=== PATIENT | male | born 2000 | race Caucasian/White ===

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

== ENCOUNTER 2021-05-05 04:09 | Emergency (ER) | payer BC, OTHER | END 2021-05-05 05:05 | disposition home or self-care (01) | LOC: MW.ED 04:09 | DX: S60.812A Abrasion of left wrist, initial encounter (principal); Z91.018 Allergy to other foods; Z88.7 Allergy status to serum and vaccine; W22.09XA Striking against other stationary object, initial encounter | CPT/HCPCS: 99282; 99283 ==

== ENCOUNTER 2021-06-09 18:55 | Emergency (ER) | payer MEDICAID ==
[2021-06-09 21:01] LABS: ACETAMINOPHEN <2.0 ug/mL; BLOOD UREA NITROGEN,BUN 18 mg/dL (7.0-18.0); CARBON DIOXIDE,CO2 27.7 mmol/L (21.0-32.0); CHLORIDE,CL 108 mmol/L (98-107); GLUCOSE RANDOM 132 mg/dL (74-106); POTASSIUM,K 3.5 mmol/L (3.5-5.1); SODIUM,NA 145 mmol/L (136-148)
[2021-06-09] MEDS ORDERED: Nicotine 21 MG/24 Hr Patch TRDERM STA (21:20)
== END 2021-06-09 21:36 | disposition home or self-care (01) ==
LOC: MW.ED 18:55
DX: R45.851 Suicidal ideations (principal); F43.21 Adjustment disorder with depressed mood; Z20.822 Contact with and (suspected) exposure to COVID-19
CPT/HCPCS: 36415; 80053; 80143; 80179; 80305; 80307; 84443; 85025; 87635; 93005; 99285; A9270; U0002

== ENCOUNTER 2021-07-15 03:16 | Emergency (ER) | payer MEDICAID ==
[2021-07-15] MEDS ORDERED: Aspirin 81 MG Tab.Chew PO ONE (03:27)
[2021-07-15 04:09] LABS: BLOOD UREA NITROGEN,BUN 13 mg/dL (7.0-18.0); CARBON DIOXIDE,CO2 27.5 mmol/L (21.0-32.0); CHLORIDE,CL 107 mmol/L (98-107); GLUCOSE RANDOM 104 mg/dL (74-106); SODIUM,NA 142 mmol/L (136-148)
== END 2021-07-15 06:24 | disposition home or self-care (01) ==
LOC: MW.ED 03:16
DX: R07.89 Other chest pain (principal); Z91.018 Allergy to other foods; Z88.7 Allergy status to serum and vaccine; Z79.899 Other long term (current) drug therapy; Z20.822 Contact with and (suspected) exposure to COVID-19
CPT/HCPCS: 36415; 71045; 80053; 84484; 85025; 87635; 93005; 99285; A9270; U0002

== ENCOUNTER 2021-08-28 04:03 | Emergency (ER) | payer MEDICAID ==
[2021-08-28] MEDS ORDERED: Sodium Chloride 0.9% 10 ML Syringe FLUSH PRN (04:56)
[2021-08-28] MEDS ORDERED: Sodium Chloride 0.9% 2.5 ML Syringe FLUSH PRN (04:56)
[2021-08-28] MEDS ORDERED: Lactated Ringers 1,000 ML IV ONE (04:56)
[2021-08-28] MEDS ORDERED: Ondansetron 4 MG/2 ML SDV IVPUSH ONE (04:56)
[2021-08-28 06:27] LABS: CARBON DIOXIDE,CO2 27.6 mmol/L (21.0-32.0); POTASSIUM,K 3.7 mmol/L (3.5-5.1)
== END 2021-08-28 06:58 | disposition home or self-care (01) ==
LOC: MW.ED 04:03
DX: R11.10 Vomiting, unspecified (principal); Z88.7 Allergy status to serum and vaccine; Z91.018 Allergy to other foods; Z79.899 Other long term (current) drug therapy
CPT/HCPCS: 36415; 80053; 81001; 83690; 85025; 96361; 96374; 99284; J2405; J3490; J7120; 99283

== ENCOUNTER 2021-10-20 19:15 | Emergency (ER) | payer MEDICAID ==
[2021-10-20] MEDS ORDERED: Acetaminophen/HYDROcodone 325-5 MG Tab PO ONE (21:00)
== END 2021-10-20 21:33 | disposition home or self-care (01) ==
LOC: MW.ED 19:15
DX: S69.91XA Unspecified injury of right wrist, hand and finger(s), initial encounter (principal); Z88.7 Allergy status to serum and vaccine; Z91.018 Allergy to other foods; W22.09XA Striking against other stationary object, initial encounter
CPT/HCPCS: 73130; 99283; A9270

== ENCOUNTER 2021-11-30 03:25 | Emergency (ER) | payer MEDICAID ==
[2021-11-30] MEDS ORDERED: OLANZapine 10 MG Vial ONE (03:51)
[2021-11-30] MEDS ORDERED: Water For Injection, Sterile 20 ML ONE (03:52)
[2021-11-30] MEDS: OLANZapine 10 MG in Water For Injection, Sterile 2.1 ML IM ONE (03:59)
== END 2021-11-30 04:10 | disposition home or self-care (01) ==
LOC: MW.ED 03:25
DX: F41.9 Anxiety disorder, unspecified (principal); Z91.018 Allergy to other foods; Z88.6 Allergy status to analgesic agent
CPT/HCPCS: 96372; 99283; J3490

== ENCOUNTER 2021-12-11 19:47 | Emergency (ER) | payer MEDICAID ==
[2021-12-11] MEDS ORDERED: Silver Sulfadiazine 1% Crm 400 GM Jar TOP ONE (20:28)
== END 2021-12-11 21:29 | disposition home or self-care (01) ==
LOC: MW.ED 19:47
DX: T34.821A Frostbite with tissue necrosis of right foot, initial encounter (principal); M79.671 Pain in right foot; Z91.018 Allergy to other foods; Z88.7 Allergy status to serum and vaccine
CPT/HCPCS: 99284; A9270

== ENCOUNTER 2021-12-23 18:04 | Emergency (ER) | payer MEDICAID ==
[2021-12-23] MEDS ORDERED: Ibuprofen 600 MG Tab PO ONE (19:52)
== END 2021-12-23 20:27 | disposition home or self-care (01) ==
LOC: MW.ED 18:04
DX: M25.531 Pain in right wrist (principal); Z88.7 Allergy status to serum and vaccine; Z91.018 Allergy to other foods
CPT/HCPCS: 73110; 99283; A9270

== ENCOUNTER 2022-01-22 22:53 | Emergency (ER) | payer OTHER, MEDICAID ==
[2022-01-22] MEDS ORDERED: Cyclobenzaprine 10 MG Tab PO ONE (23:42)
[2022-01-22] MEDS ORDERED: Ketorolac 30 MG/ML SDV IM ONE (23:42)
[2022-01-22] MEDS ORDERED: Acetaminophen/HYDROcodone 325-5 MG Tab PO ONE (23:42)
== END 2022-01-23 02:00 | disposition home or self-care (01) ==
LOC: MW.ED 22:53
DX: S09.90XA Unspecified injury of head, initial encounter (principal); S00.83XA Contusion of other part of head, initial encounter; R07.89 Other chest pain; M54.2 Cervicalgia; J45.909 Unspecified asthma, uncomplicated; Z91.018 Allergy to other foods; Z88.7 Allergy status to serum and vaccine; V89.2XXA Person injured in unspecified motor-vehicle accident, traffic, initial encounter; Y92.410 Unspecified street and highway as the place of occurrence of the external cause
CPT/HCPCS: 70450; 71045; 72125; 96374; 99284; A9270; J1885

== ENCOUNTER 2022-01-26 12:49 | Emergency (ER) | payer MEDICAID ==
[2022-01-26] MEDS ORDERED: Acetaminophen 500 MG Tab PO ONE (14:29)
[2022-01-26] MEDS ORDERED: Ibuprofen 200 MG Tab PO ONE (14:29)
[2022-01-26 15:30] LABS: CORONAVIRUS COVID-19 NAA NEGATIVE (NEGATIVE); INFLUENZA A NAA POSITIVE (NEGATIVE); INFLUENZA B NAA NEGATIVE (NEGATIVE); RESPIRATORY SYNCYTIAL VIR NAA NEGATIVE (NEGATIVE)
== END 2022-01-26 15:50 | disposition home or self-care (01) ==
LOC: MW.ED 12:49
DX: J10.1 Influenza due to other identified influenza virus with other respiratory manifestations (principal); F17.210 Nicotine dependence, cigarettes, uncomplicated; Z88.7 Allergy status to serum and vaccine; Z88.8 Allergy status to other drugs, medicaments and biological substances; Z20.822 Contact with and (suspected) exposure to COVID-19
CPT/HCPCS: 0241U; 71045; 72100; 93005; 99285; A9270

== ENCOUNTER 2022-03-19 22:13 | Emergency (ER) | payer MEDICAID ==
[2022-03-19] MEDS ORDERED: Cephalexin 500 MG Cap PO STA (23:34)
[2022-03-19] MEDS ORDERED: Ibuprofen 600 MG Tab PO ONE (23:37)
[2022-03-19] MEDS ORDERED: Diphtheria,Pertussis(Acell),Tetanus Vaccine 0.5 ML Syringe IM ONE (23:37)
== END 2022-03-20 00:09 | disposition home or self-care (01) ==
LOC: MW.ED 22:13
DX: L03.113 Cellulitis of right upper limb (principal); J45.909 Unspecified asthma, uncomplicated; Z23 Encounter for immunization; Z72.0 Tobacco use; Z91.018 Allergy to other foods; Z88.7 Allergy status to serum and vaccine; Z79.899 Other long term (current) drug therapy
CPT/HCPCS: 90471; 90715; 99282; A9270

== ENCOUNTER 2022-04-07 19:23 | Emergency (ER) | payer MEDICAID ==
[2022-04-07] MEDS ORDERED: Ketorolac 30 MG/ML SDV IVPUSH ONE (19:29)
[2022-04-07 20:15] LABS: CARBON DIOXIDE,CO2 30.2 mmol/L (21.0-32.0); POTASSIUM,K 3.9 mmol/L (3.5-5.1)
== END 2022-04-07 21:20 | disposition home or self-care (01) ==
LOC: MW.ED 19:23
DX: R07.89 Other chest pain (principal); R55 Syncope and collapse; R07.81 Pleurodynia; J45.909 Unspecified asthma, uncomplicated; Z88.7 Allergy status to serum and vaccine; Z91.018 Allergy to other foods
CPT/HCPCS: 36415; 71045; 80053; 83690; 84484; 85025; 85652; 93005; 96374; 99285; J1885

== ENCOUNTER 2022-04-20 15:15 | Emergency (ER) | payer MEDICAID ==
[2022-04-20] MEDS ORDERED: diphenhydrAMINE 50 MG/ML SDV IVPUSH ONE ×2 (15:21→16:51)
[2022-04-20] MEDS ORDERED: methylPREDNISolone Sodium Succinate 125 MG/2 ML SDV IM ONE (15:21)
[2022-04-20] MEDS ORDERED: methylPREDNISolone Sodium Succinate 125 MG/2 ML SDV IVPUSH ONE (15:21)
[2022-04-20] MEDS ORDERED: EPINEPHrine 1 MG/1 ML Amp SUBCUT ONE (15:21)
[2022-04-20] MEDS ORDERED: EPINEPHrine 1 MG/1 ML Amp ONE (15:21)
[2022-04-20] MEDS ORDERED: diphenhydrAMINE 50 MG/ML SDV IM ONE (15:21)
[2022-04-20] MEDS ORDERED: methylPREDNISolone Sodium Succinate 125 MG/2 ML SDV ONE (15:22)
[2022-04-20] MEDS ORDERED: Famotidine 20 MG Tab PO STA (15:22)
[2022-04-20] MEDS ORDERED: diphenhydrAMINE 50 MG/ML SDV ONE (15:23)
[2022-04-20] MEDS ORDERED: Lactated Ringers 1,000 ML IV SCH (15:30)
[2022-04-20] MEDS ORDERED: Cetirizine 10 MG Tab PO ONE (16:48)
[2022-04-20 17:57] LABS: CARBON DIOXIDE,CO2 25.4 mmol/L (21.0-32.0); POTASSIUM,K 3.6 mmol/L (3.5-5.1)
== END 2022-04-20 18:27 | disposition home or self-care (01) ==
LOC: MW.ED 15:15
DX: T78.2XXA Anaphylactic shock, unspecified, initial encounter (principal); Z88.7 Allergy status to serum and vaccine; Z91.018 Allergy to other foods
CPT/HCPCS: 36415; 80053; 93005; 96361; 96372; 96374; 96375; 96376; 99283; A9270; J0171; J1200; J2930; J7120

== ENCOUNTER 2022-04-29 18:33 | Emergency (ER) | payer SELFPAY ==
[2022-04-29] MEDS ORDERED: Sodium Chloride 0.9% 1,000 ML IV STA (20:23)
[2022-04-29] MEDS ORDERED: Sodium Chloride 0.9% 2.5 ML Syringe FLUSH PRN (20:24)
[2022-04-29] MEDS ORDERED: Sodium Chloride 0.9% 10 ML Syringe FLUSH PRN (20:24)
[2022-04-29 21:26] LABS: BLOOD UREA NITROGEN,BUN 12 mg/dL (7.0-18.0); CARBON DIOXIDE,CO2 28.2 mmol/L (21.0-32.0); CHLORIDE,CL 105 mmol/L (98-107); GLUCOSE RANDOM 90 mg/dL (74-106); POTASSIUM,K 4.2 mmol/L (3.5-5.1); SODIUM,NA 141 mmol/L (136-148)
[2022-04-29 21:35] LABS: ESTIMATED GFR 110 mL/min (>60)
== END 2022-04-29 22:08 | disposition home or self-care (01) ==
LOC: MW.ED 18:33
DX: Z77.098 Contact with and (suspected) exposure to other hazardous, chiefly nonmedicinal, chemicals (principal); Z88.7 Allergy status to serum and vaccine; Z91.018 Allergy to other foods
CPT/HCPCS: 36415; 71045; 80053; 81003; 85025; 93005; 96360; 99285; J3490; J7030

== ENCOUNTER 2022-05-02 22:40 | Emergency (ER) | payer MEDICAID ==
[2022-05-03] MEDS ORDERED: Ibuprofen 800 MG Tab PO ONE (02:39)
== END 2022-05-03 02:50 | disposition home or self-care (01) ==
LOC: MW.ED 22:40
DX: S61.001A Unspecified open wound of right thumb without damage to nail, initial encounter (principal); Z88.7 Allergy status to serum and vaccine; Z91.018 Allergy to other foods; W23.1XXA Caught, crushed, jammed, or pinched between stationary objects, initial encounter; Y99.0 Civilian activity done for income or pay
CPT/HCPCS: 29125; 73110; 73130; 99283; A9270; 99282

== ENCOUNTER 2022-05-10 20:54 | Emergency (ER) | payer MEDICAID ==
[2022-05-10] MEDS ORDERED: Famotidine 20 MG/2 ML SDV IVPUSH ONE (21:01)
[2022-05-10] MEDS ORDERED: Sodium Chloride 0.9% 1,000 ML IV ONE (21:01)
[2022-05-10] MEDS ORDERED: methylPREDNISolone Sodium Succinate 125 MG/2 ML SDV IVPUSH ONE (21:01)
[2022-05-10] MEDS ORDERED: diphenhydrAMINE 50 MG/ML SDV IVPUSH ONE (21:01)
== END 2022-05-10 23:00 | disposition home or self-care (01) ==
LOC: MW.ED 20:54
DX: T78.1XXA Other adverse food reactions, not elsewhere classified, initial encounter (principal); Z88.7 Allergy status to serum and vaccine; Z91.018 Allergy to other foods
CPT/HCPCS: 80305-QW; 96361; 96374; 96375; 99283-25; J1200; J2930; J3490; J7030

== ENCOUNTER 2022-06-22 00:50 | Emergency (ER) | payer OTHER, MEDICAID ==
[2022-06-22] MEDS ORDERED: Sodium Chloride 0.9% 2.5 ML Syringe FLUSH PRN (00:54)
[2022-06-22] MEDS ORDERED: Ondansetron 4 MG/2 ML SDV IVPUSH ONE (00:54)
[2022-06-22] MEDS ORDERED: Sodium Chloride 0.9% 1,000 ML IV ONE (00:54)
[2022-06-22] MEDS ORDERED: Sodium Chloride 0.9% 10 ML Syringe FLUSH PRN (00:54)
[2022-06-22] MEDS ORDERED: Famotidine 20 MG/2 ML SDV IVPUSH ONE (00:54)
[2022-06-22 01:03] LABS: BASOPHILS PERCENT AUTO 0.2 % (0.0-1.5); EOSINOPHILS ABSOLUTE AUTO 0.1 K/uL (0.0-0.7); EOSINOPHILS PERCENT AUTO 1.3 % (0.0-7.0); HEMATOCRIT 51.9 % (38.0-50.0); HEMOGLOBIN 17.5 g/dL (13.0-17.0); LYMPHOCYTES ABSOLUTE AUTO 1.8 K/uL (0.6-2.4); LYMPHOCYTES PERCENT AUTO 20.8 % (16.0-40.0); MEAN CORPUSCULAR HEMOGLOBIN 30.3 pg (27.0-32.0); MEAN CORPUSCULAR HGB CONC 33.7 g/dL (31.0-37.0); MEAN CORPUSCULAR VOLUME 89.8 fL (80.0-98.0); MONOCYTES ABSOLUTE AUTO 0.6 K/uL (0.0-0.8); MONOCYTES PERCENT AUTO 7.4 % (0.0-15.0); NEUTROPHILS ABSOLUTE AUTO 5.9 K/uL (1.4-5.7); NEUTROPHILS PERCENT AUTO 70.3 % (48.0-80.0); PLATELET COUNT,PLT 147 K/uL (150-400); RED BLOOD CELL COUNT 5.78 M/uL (4.50-5.90); WHITE BLOOD CELL COUNT,WBC 8.43 K/uL (4.0-11.0)
[2022-06-22 01:20] LABS: INR 1.03 (0.86-1.11); PTT,PARTIAL THROMBOPLSTIN TIME 27.9 SEC (23.9-30.7)
[2022-06-22 01:25] LABS: A/G RATIO 1.4 (0.9-1.6); ALANINE AMINOTRANSFERASE,ALT 59 IU/L (14-63); ALBUMIN 4.3 g/dL (3.4-5.0); ALKALINE PHOSPHATASE 109 U/L (46-116); ASPARTATE AMNIOTRANSFERASE,AST 21 IU/L (15-37); BILIRUBIN TOTAL 0.5 mg/dL (0.2-1.0); BLOOD UREA NITROGEN,BUN 16 mg/dL (7.0-18.0); CALCIUM 9.2 mg/dL (8.5-10.1); CARBON DIOXIDE,CO2 28.8 mmol/L (21.0-32.0); CHLORIDE,CL 106 mmol/L (98-107); CREATININE 1.2 mg/dL (0.8-1.3); EST CRCL DRUG DOSING (CG) 106.88 mL/min; ESTIMATED GFR 88 mL/min (>60); ETHANOL BLOOD MEDICAL < 3.0 mg/dL; GLUCOSE RANDOM 100 mg/dL (74-106); LIPASE 105 U/L (73-393); MAGNESIUM 2.4 mg/dL (1.8-2.4); PHOSPHORUS 3.1 mg/dL (2.6-4.7); POTASSIUM,K 3.8 mmol/L (3.5-5.1); PROTEIN TOTAL,TP 7.4 g/dL (6.4-8.2); SODIUM,NA 144 mmol/L (136-148)
== END 2022-06-22 01:49 ==
LOC: MW.ED 00:50
DX: S14.109A Unspecified injury at unspecified level of cervical spinal cord, initial encounter (principal); S34.109A Unspecified injury to unspecified level of lumbar spinal cord, initial encounter; M62.81 Muscle weakness (generalized); Z88.7 Allergy status to serum and vaccine; Z91.018 Allergy to other foods; Z72.0 Tobacco use; V89.2XXA Person injured in unspecified motor-vehicle accident, traffic, initial encounter; Y92.410 Unspecified street and highway as the place of occurrence of the external cause
CPT/HCPCS: 36415; 70450; 71260; 72125; 74177; 80053; 80307; 83690; 83735; 84100; 84484; 85025; 85610; 85730; 93005; 96374; 96375; 99285; J2405; J3490; J7030; 72128-26; 72131-26; 93010; 99291

== ENCOUNTER 2022-06-25 19:11 | Emergency (ER) | payer MEDICAID | END 2022-06-25 19:28 | disposition left against medical advice (07) | LOC: MW.ED 19:11 | DX: Z53.21 Procedure and treatment not carried out due to patient leaving prior to being seen by health care provider (principal) ==

== ENCOUNTER 2022-07-10 00:27 | Emergency (ER) | payer MEDICAID ==
[2022-07-10] MEDS ORDERED: Orphenadrine 60 MG/2 ML Inj IM ONE (02:09)
[2022-07-10] MEDS ORDERED: Sodium Chloride 0.9% 10 ML Syringe FLUSH PRN (02:25)
[2022-07-10] MEDS ORDERED: methylPREDNISolone Sodium Succinate 125 MG/2 ML SDV IVPUSH ONE (02:25)
[2022-07-10] MEDS ORDERED: Ketorolac 30 MG/ML SDV IVPUSH ONE (02:25)
[2022-07-10] MEDS ORDERED: Sodium Chloride 0.9% 2.5 ML Syringe FLUSH PRN (02:25)
[2022-07-10] MEDS ORDERED: HYDROmorphone 1 MG/ML Syringe IVPUSH ONE (02:25)
[2022-07-10 03:35] LABS: BASOPHILS PERCENT AUTO 0.2 % (0.0-1.5); EOSINOPHILS ABSOLUTE AUTO 0.2 K/uL (0.0-0.7); EOSINOPHILS PERCENT AUTO 1.8 % (0.0-7.0); HEMATOCRIT 47.3 % (38.0-50.0); HEMOGLOBIN 16.1 g/dL (13.0-17.0); LYMPHOCYTES ABSOLUTE AUTO 2.2 K/uL (0.6-2.4); LYMPHOCYTES PERCENT AUTO 25.4 % (16.0-40.0); MEAN CORPUSCULAR HEMOGLOBIN 30.7 pg (27.0-32.0); MEAN CORPUSCULAR VOLUME 90.1 fL (80.0-98.0); MONOCYTES ABSOLUTE AUTO 0.6 K/uL (0.0-0.8); MONOCYTES PERCENT AUTO 7.2 % (0.0-15.0); NEUTROPHILS ABSOLUTE AUTO 5.6 K/uL (1.4-5.7); NEUTROPHILS PERCENT AUTO 65.4 % (48.0-80.0); PLATELET COUNT,PLT 181 K/uL (150-400); RED BLOOD CELL COUNT 5.25 M/uL (4.50-5.90)
[2022-07-10 03:53] LABS: BLOOD UREA NITROGEN,BUN 16 mg/dL (7.0-18.0); CALCIUM 9.2 mg/dL (8.5-10.1); CARBON DIOXIDE,CO2 29.3 mmol/L (21.0-32.0); CHLORIDE,CL 105 mmol/L (98-107); CREATININE 1.2 mg/dL (0.8-1.3); EST CRCL DRUG DOSING (CG) 110.05 mL/min; GLUCOSE RANDOM 101 mg/dL (74-106); POTASSIUM,K 3.7 mmol/L (3.5-5.1); SODIUM,NA 144 mmol/L (136-148)
[2022-07-10 04:00] LABS: C-REACTIVE PROTEIN < 0.20 mg/dL (0.00-0.90); ESTIMATED GFR 88 mL/min (>60)
[2022-07-10] MEDS ORDERED: Orphenadrine 60 MG/2 ML Inj ONE (04:16)
== END 2022-07-10 09:07 ==
LOC: MW.ED 00:27
DX: M54.16 Radiculopathy, lumbar region (principal); J45.909 Unspecified asthma, uncomplicated; Z91.018 Allergy to other foods; Z88.7 Allergy status to serum and vaccine
CPT/HCPCS: 36415; 80048; 85025; 86140; 96372; 96374; 96375; 99285; J1170; J1885; J2360; J2930; J3490

== ENCOUNTER 2022-07-18 01:49 | Emergency (ER) | payer MEDICAID ==
[2022-07-18] MEDS ORDERED: Ketorolac 30 MG/ML SDV IM STA (01:56)
[2022-07-18] MEDS ORDERED: Dexamethasone 10 MG/ML SDV IM STA (01:56)
== END 2022-07-18 02:00 | disposition left against medical advice (07) ==
LOC: MW.ED 01:49
DX: M54.50 Low back pain, unspecified (principal); J45.909 Unspecified asthma, uncomplicated; Z88.7 Allergy status to serum and vaccine; Z91.018 Allergy to other foods
CPT/HCPCS: 99284

== ENCOUNTER 2022-07-31 20:57 | Emergency (ER) | payer MEDICAID ==
[2022-07-31] MEDS ORDERED: Gabapentin 100 MG Cap PO ONE (21:57)
[2022-07-31 22:04] LABS: BASOPHILS PERCENT AUTO 0.3 % (0.0-1.5); EOSINOPHILS ABSOLUTE AUTO 0.2 K/uL (0.0-0.7); EOSINOPHILS PERCENT AUTO 2.5 % (0.0-7.0); HEMOGLOBIN 16.6 g/dL (13.0-17.0); LYMPHOCYTES ABSOLUTE AUTO 1.6 K/uL (0.6-2.4); MEAN CORPUSCULAR HEMOGLOBIN 30.9 pg (27.0-32.0); MEAN CORPUSCULAR HGB CONC 34.6 g/dL (31.0-37.0); MEAN CORPUSCULAR VOLUME 89.4 fL (80.0-98.0); MONOCYTES ABSOLUTE AUTO 0.6 K/uL (0.0-0.8); MONOCYTES PERCENT AUTO 8.1 % (0.0-15.0); NEUTROPHILS ABSOLUTE AUTO 4.9 K/uL (1.4-5.7); NEUTROPHILS PERCENT AUTO 67.1 % (48.0-80.0); NRBC ABSOLUTE 0 K/uL; PLATELET COUNT,PLT 169 K/uL (150-400); RED BLOOD CELL COUNT 5.37 M/uL (4.50-5.90); WHITE BLOOD CELL COUNT,WBC 7.26 K/uL (4.0-11.0)
[2022-07-31 22:38] LABS: A/G RATIO 1.4 (0.9-1.6); ACETAMINOPHEN <2.0 ug/mL; ALANINE AMINOTRANSFERASE,ALT 97 IU/L (14-63); ALBUMIN 4.4 g/dL (3.4-5.0); ALKALINE PHOSPHATASE 109 U/L (46-116); ASPARTATE AMNIOTRANSFERASE,AST 32 IU/L (15-37); BILIRUBIN TOTAL 0.7 mg/dL (0.2-1.0); BLOOD UREA NITROGEN,BUN 20 mg/dL (7.0-18.0); CARBON DIOXIDE,CO2 25.6 mmol/L (21.0-32.0); CHLORIDE,CL 106 mmol/L (98-107); EST CRCL DRUG DOSING (CG) 139.66 mL/min; GLUCOSE RANDOM 112 mg/dL (74-106); POTASSIUM,K 3.6 mmol/L (3.5-5.1); PROTEIN TOTAL,TP 7.5 g/dL (6.4-8.2); SODIUM,NA 144 mmol/L (136-148); TSH ULTRASENSITIVE 0.67 uIU/mL (0.36-3.74)
[2022-07-31 22:39] LABS: ESTIMATED GFR 110 mL/min (>60); ETHANOL BLOOD MEDICAL < 3.0 mg/dL; SALICYLATE < 0.2 mg/dL (0.0-20.0)
[2022-07-31 23:35] LABS: BILIRUBIN,URINE NEGATIVE (NEGATIVE); GLUCOSE,URINE NEGATIVE (NEGATIVE); KETONES,URINE NEGATIVE (NEGATIVE); LEUKOCYTE ESTERASE,URINE NEGATIVE (NEGATIVE); NITRITE,URINE NEGATIVE (NEGATIVE); OCCULT BLOOD,URINE NEGATIVE (NEGATIVE); PROTEIN,URINE NEGATIVE (NEGATIVE)
[2022-07-31 23:45] LABS: AMPHETAMINES SCREEN, URINE NEGATIVE (CUTOFF=500); BARBITURATE SCREEN,URINE NEGATIVE (CUTOFF=200); BENZODIAZEPINES SCREEN,URINE NEGATIVE (CUTOFF=150); BUPRENORPHINE SCREEN,URINE NEGATIVE (CUTOFF=10); METHADONE SCREEN, URINE NEGATIVE (CUTOFF=200); METHAMPHETAMINES SCREEN, URINE NEGATIVE (CUTOFF=500); OXYCODONE SCREEN,URINE NEGATIVE (CUT0FF=100); PCP SCREEN,URINE NEGATIVE (CUTOFF=25); PROPOXYPHENE SCREEN,URINE NEGATIVE (CUTOFF=300); THC SCREEN,URINE 20 NG/ML NEGATIVE (CUTOFF=50)
[2022-07-31 23:46] LABS: APPEARANCE,URINE CLEAR; COLOR,URINE AMBER
== END 2022-08-01 09:45 ==
LOC: MW.ED 20:57
DX: R45.851 Suicidal ideations (principal); Z91.018 Allergy to other foods; Z88.7 Allergy status to serum and vaccine
CPT/HCPCS: 36415; 80053; 80143; 80179; 80305; 80307; 81003; 84443; 85025; 87635; 93005; 99285; A9270; U0002

== ENCOUNTER 2022-08-24 18:59 | Emergency (ER) | payer MEDICAID ==
[2022-08-24] MEDS ORDERED: Metoclopramide 10 MG/2 ML SDV IVPUSH ONE (19:09)
[2022-08-24] MEDS ORDERED: diphenhydrAMINE 50 MG/ML SDV IVPUSH ONE (19:09)
[2022-08-24] MEDS ORDERED: Ketorolac 30 MG/ML SDV IVPUSH ONE (19:09)
[2022-08-24] MEDS ORDERED: Sodium Chloride 0.9% 1,000 ML IV ONE (19:09)
== END 2022-08-24 20:28 | disposition home or self-care (01) ==
LOC: MW.ED 18:59
DX: R51.9 Headache, unspecified (principal); F41.9 Anxiety disorder, unspecified; Z88.7 Allergy status to serum and vaccine; Z91.018 Allergy to other foods
CPT/HCPCS: 70450; 82947; 96361; 96374; 96375; 99284; J1200; J1885; J2765; J7030

== ENCOUNTER 2022-08-26 19:08 | Emergency (ER) | payer MEDICAID ==
[2022-08-26] MEDS ORDERED: Ketorolac 60 MG/2 ML SDV IM ONE (19:24)
[2022-08-26] MEDS ORDERED: Ondansetron 4 MG Tab.DIS PO ONE (19:24)
[2022-08-26 19:36] LABS: BASOPHILS PERCENT AUTO 0.4 % (0.0-1.5); EOSINOPHILS ABSOLUTE AUTO 0.2 K/uL (0.0-0.7); EOSINOPHILS PERCENT AUTO 1.9 % (0.0-7.0); HEMOGLOBIN 16.9 g/dL (13.0-17.0); LYMPHOCYTES ABSOLUTE AUTO 1.7 K/uL (0.6-2.4); LYMPHOCYTES PERCENT AUTO 21.5 % (16.0-40.0); MEAN CORPUSCULAR HGB CONC 34.5 g/dL (31.0-37.0); MEAN CORPUSCULAR VOLUME 89.7 fL (80.0-98.0); MONOCYTES ABSOLUTE AUTO 0.7 K/uL (0.0-0.8); MONOCYTES PERCENT AUTO 8.8 % (0.0-15.0); NEUTROPHILS ABSOLUTE AUTO 5.3 K/uL (1.4-5.7); NEUTROPHILS PERCENT AUTO 67.4 % (48.0-80.0); PLATELET COUNT,PLT 163 K/uL (150-400); RED BLOOD CELL COUNT 5.46 M/uL (4.50-5.90); WHITE BLOOD CELL COUNT,WBC 7.92 K/uL (4.0-11.0)
[2022-08-26 19:52] LABS: A/G RATIO 1.4 (0.9-1.6); ALBUMIN 4.3 g/dL (3.4-5.0); BILIRUBIN TOTAL 0.4 mg/dL (0.2-1.0); CALCIUM 9.5 mg/dL (8.5-10.1); CARBON DIOXIDE,CO2 25.8 mmol/L (21.0-32.0); CREATININE 1.1 mg/dL (0.8-1.3); EST CRCL DRUG DOSING (CG) 126.96 mL/min; POTASSIUM,K 3.9 mmol/L (3.5-5.1); PROTEIN TOTAL,TP 7.4 g/dL (6.4-8.2)
== END 2022-08-26 20:15 | disposition home or self-care (01) ==
LOC: MW.ED 19:08
DX: R51.9 Headache, unspecified (principal); R11.0 Nausea; R42 Dizziness and giddiness; J45.909 Unspecified asthma, uncomplicated; Z91.018 Allergy to other foods; Z88.7 Allergy status to serum and vaccine
CPT/HCPCS: 36415; 70450; 71045; 80053; 85025; 93005; 96372; 99284; A9270; J1885; 93010; 99283

== ENCOUNTER 2022-09-13 01:10 | Emergency (ER) | payer MEDICAID ==
[2022-09-13] MEDS ORDERED: Ketorolac 30 MG/ML SDV IVPUSH ONE (01:21)
== END 2022-09-13 01:55 | disposition home or self-care (01) ==
LOC: MW.ED 01:10
DX: F10.129 Alcohol abuse with intoxication, unspecified (principal); R11.2 Nausea with vomiting, unspecified; J45.909 Unspecified asthma, uncomplicated; Z91.09 Other allergy status, other than to drugs and biological substances; Z88.7 Allergy status to serum and vaccine
CPT/HCPCS: 96374; 99284; J1885; 99283

== ENCOUNTER 2022-10-14 23:15 | Emergency (ER) | payer MEDICAID, OTHER ==
[2022-10-15] MEDS ORDERED: Ketorolac 30 MG/ML SDV IM ONE (00:04)
[2022-10-15] MEDS ORDERED: Orphenadrine 60 MG/2 ML Inj IM ONE (00:04)
== END 2022-10-15 00:55 | disposition home or self-care (01) ==
LOC: MW.ED 23:15
DX: M54.50 Low back pain, unspecified (principal); Z79.899 Other long term (current) drug therapy; Z88.7 Allergy status to serum and vaccine; Z91.018 Allergy to other foods
CPT/HCPCS: 96372; 99283; J1885; J2360

== ENCOUNTER 2022-10-20 00:06 | Emergency (ER) | payer MEDICAID ==
[2022-10-20] MEDS ORDERED: predniSONE 10 MG Tab PO ONE (00:54)
[2022-10-20] MEDS ORDERED: diphenhydrAMINE 50 MG/ML SDV IM ONE (00:54)
[2022-10-20] MEDS ORDERED: predniSONE 10 MG Tab ONE (01:03)
[2022-10-20] MEDS ORDERED: Ondansetron 4 MG Tab.DIS PO ONE (01:08)
== END 2022-10-20 01:21 | disposition home or self-care (01) ==
LOC: MW.ED 00:06
DX: T78.1XXA Other adverse food reactions, not elsewhere classified, initial encounter (principal); Z88.7 Allergy status to serum and vaccine; Z79.899 Other long term (current) drug therapy
CPT/HCPCS: 96372; 99283; A9270; J1200

== ENCOUNTER 2022-10-23 18:47 | Emergency (ER) | payer SELFPAY | END 2022-10-23 21:25 | disposition left against medical advice (07) | LOC: MW.ED 18:47 | DX: R07.9 Chest pain, unspecified (principal); R09.81 Nasal congestion; R05.9 Cough, unspecified | CPT/HCPCS: 93005; 99284 ==

== ENCOUNTER 2022-12-11 20:09 | Emergency (ER) | payer SELFPAY | END 2022-12-11 21:55 | disposition home or self-care (01) | LOC: MW.ED 20:09 | DX: R04.0 Epistaxis (principal); Z91.018 Allergy to other foods; Z88.7 Allergy status to serum and vaccine | CPT/HCPCS: 99283 ==

== ENCOUNTER 2023-01-24 16:56 | Emergency (ER) | payer SELFPAY ==
[2023-01-24] MEDS ORDERED: Ondansetron 4 MG/2 ML SDV IVPUSH ONE (17:29)
[2023-01-24] MEDS ORDERED: Ketorolac 30 MG/ML SDV IVPUSH ONE (17:29)
[2023-01-24] MEDS ORDERED: Sodium Chloride 0.9% 1,000 ML IV ONE (17:29)
[2023-01-24 17:47] LABS: BASOPHILS ABSOLUTE AUTO 0.05 K/uL (0.00-0.20); BASOPHILS PERCENT AUTO 0.7 % (0.0-1.0); EOSINOPHILS ABSOLUTE AUTO 0.25 K/uL (0.00-0.45); EOSINOPHILS PERCENT AUTO 3.7 % (0.0-6.0); HEMATOCRIT 45.3 % (42.0-52.0); HEMOGLOBIN 15.7 g/dL (14.0-18.0); IMMATURE GRAN ABSOLUTE AUTO 0.06 K/uL (0.00-0.05); IMMATURE GRAN PERCENT AUTO 0.9 % (0.0-0.4); LYMPHOCYTES ABSOLUTE AUTO 1.56 K/uL (1.00-4.80); LYMPHOCYTES PERCENT AUTO 22.8 % (24.0-44.0); MEAN CORPUSCULAR HEMOGLOBIN 30.3 pg (28.0-32.0); MEAN CORPUSCULAR HGB CONC 34.7 g/dL (32.0-36.0); MEAN CORPUSCULAR VOLUME 87.3 fL (83.0-99.0); MEAN PLATELET VOLUME 11.2 fL (9.4-12.4); MONOCYTES ABSOLUTE AUTO 0.47 K/uL (0.00-0.80); MONOCYTES PERCENT AUTO 6.9 % (0.0-8.0); NEUTROPHILS ABSOLUTE AUTO 4.45 K/uL (1.80-7.70); PLATELET COUNT,PLT 156 K/uL (150-400); RED BLOOD CELL COUNT 5.19 M/uL (4.52-5.90); WHITE BLOOD CELL COUNT,WBC 6.84 K/uL (3.9-11.3)
[2023-01-24 18:10] LABS: A/G RATIO 1.3 (0.9-1.6); ALBUMIN 3.6 g/dL (3.4-5.0); BILIRUBIN TOTAL 0.2 mg/dL (0.2-1.0); CALCIUM 8.8 mg/dL (8.5-10.1); CARBON DIOXIDE,CO2 25.7 mmol/L (21.0-32.0); CREATININE 0.9 mg/dL (0.8-1.3); EST CRCL DRUG DOSING (CG) 153.87 mL/min; POTASSIUM,K 3.5 mmol/L (3.5-5.1); PROTEIN TOTAL,TP 6.4 g/dL (6.4-8.2)
[2023-01-24] MEDS ORDERED: Iopamidol 755 MG/ML 500 ML Multipack Bottle IVPUSH STA (18:40)
== END 2023-01-24 20:33 | disposition home or self-care (01) ==
LOC: MW.ED 16:56
DX: R10.31 Right lower quadrant pain (principal); Z88.7 Allergy status to serum and vaccine; Z91.018 Allergy to other foods
CPT/HCPCS: 36415; 74177; 80053; 85025; 96361; 96374; 96375; 99284; J1885; J2405; J7030; Q9967

== ENCOUNTER 2023-01-25 03:06 | Emergency (ER) | payer SELFPAY ==
[2023-01-25] MEDS ORDERED: Ondansetron 4 MG Tab.DIS PO STA (03:18)
[2023-01-25] MEDS ORDERED: Ibuprofen 600 MG Tab PO ONE (03:18)
[2023-01-25 03:22] LABS: APPEARANCE,URINE CLEAR; BILIRUBIN,URINE NEGATIVE (NEGATIVE); COLOR,URINE YELLOW; GLUCOSE,URINE NEGATIVE (NEGATIVE); KETONES,URINE NEGATIVE (NEGATIVE); LEUKOCYTE ESTERASE,URINE NEGATIVE (NEGATIVE); NITRITE,URINE NEGATIVE (NEGATIVE); OCCULT BLOOD,URINE NEGATIVE (NEGATIVE); PROTEIN,URINE NEGATIVE (NEGATIVE); UROBILINOGEN,URINE 0.2 EU/dL (<2.0)
[2023-01-25] MEDS ORDERED: Ondansetron 4 MG/2 ML SDV IM ONE (03:29)
[2023-01-25 03:50] LABS: BASOPHILS ABSOLUTE AUTO 0.04 K/uL (0.00-0.20); BASOPHILS PERCENT AUTO 0.5 % (0.0-1.0); EOSINOPHILS ABSOLUTE AUTO 0.19 K/uL (0.00-0.45); EOSINOPHILS PERCENT AUTO 2.4 % (0.0-6.0); HEMATOCRIT 44.7 % (42.0-52.0); HEMOGLOBIN 15.6 g/dL (14.0-18.0); IMMATURE GRAN ABSOLUTE AUTO 0.04 K/uL (0.00-0.05); IMMATURE GRAN PERCENT AUTO 0.5 % (0.0-0.4); LYMPHOCYTES ABSOLUTE AUTO 1.71 K/uL (1.00-4.80); LYMPHOCYTES PERCENT AUTO 21.9 % (24.0-44.0); MEAN CORPUSCULAR HEMOGLOBIN 30.4 pg (28.0-32.0); MEAN CORPUSCULAR HGB CONC 34.9 g/dL (32.0-36.0); MEAN PLATELET VOLUME 10.6 fL (9.4-12.4); MONOCYTES ABSOLUTE AUTO 0.53 K/uL (0.00-0.80); MONOCYTES PERCENT AUTO 6.8 % (0.0-8.0); NEUTROPHILS ABSOLUTE AUTO 5.29 K/uL (1.80-7.70); NEUTROPHILS PERCENT AUTO 67.9 % (41.0-71.0); PLATELET COUNT,PLT 160 K/uL (150-400); RED BLOOD CELL COUNT 5.14 M/uL (4.52-5.90)
[2023-01-25 04:15] LABS: CORONAVIRUS COVID-19 NAA NEGATIVE (NEGATIVE); INFLUENZA A NAA NEGATIVE (NEGATIVE); INFLUENZA B NAA NEGATIVE (NEGATIVE); RESPIRATORY SYNCYTIAL VIR NAA NEGATIVE (NEGATIVE)
[2023-01-25 04:33] LABS: A/G RATIO 1.3 (0.9-1.6); ALBUMIN 3.7 g/dL (3.4-5.0); BILIRUBIN TOTAL 0.2 mg/dL (0.2-1.0); EST CRCL DRUG DOSING (CG) 138.49 mL/min; POTASSIUM,K 3.6 mmol/L (3.5-5.1); PROTEIN TOTAL,TP 6.5 g/dL (6.4-8.2)
[2023-01-25 04:40] LABS: BACTERIA,URINE FEW (NEGATIVE); EPITHELIAL CELLS,URINE FEW (NONE-FEW); MUCUS,URINE LIGHT (NONE-MOD); WBC,URINE 0-2 (0-5/HPF)
== END 2023-01-25 05:14 | disposition home or self-care (01) ==
LOC: MW.ED 03:06
DX: R10.31 Right lower quadrant pain (principal); Z91.018 Allergy to other foods; Z88.7 Allergy status to serum and vaccine; Z20.822 Contact with and (suspected) exposure to COVID-19
CPT/HCPCS: 0241U; 36415; 80053; 81001; 85025; 96372; 99284; A9270; J2405; 99283

== ENCOUNTER 2023-01-30 08:14 | Day surgery (SDC) | payer MEDICAID ==
[~2023-01-30 08:14] MED LIST: Lactated Ringers 1,000 ML IV SCH
[2023-01-30] MEDS ORDERED: Lidocaine 2% 5 ML SDV ONE (10:18)
[2023-01-30] MEDS ORDERED: Propofol 200 MG/20 ML SDV ONE ×2 (10:18→11:48)
== END 2023-01-30 13:05 | disposition home or self-care (01) ==
LOC: MW.SDS 08:14
PROVIDERS: ATTEND Surgery
DX: K92.1 Melena (principal); K64.8 Other hemorrhoids; E66.9 Obesity, unspecified; Z68.39 Body mass index [BMI] 39.0-39.9, adult; J45.909 Unspecified asthma, uncomplicated; F17.210 Nicotine dependence, cigarettes, uncomplicated; Z79.899 Other long term (current) drug therapy; Z88.7 Allergy status to serum and vaccine; Z91.018 Allergy to other foods
CPT/HCPCS: 45380; J2704; J7120; 00811; J3490

== ENCOUNTER 2023-04-08 22:11 | Emergency (ER) | payer SELFPAY ==
[2023-04-08] MEDS: Cephalexin 500 MG Cap PO ONE (23:26)
[2023-04-08] MEDS: Ketorolac 30 MG/ML SDV IM ONE (23:26)
[2023-04-08] MEDS: Orphenadrine 60 MG/2 ML Inj IM ONE (23:27)
== END 2023-04-08 23:32 | disposition home or self-care (01) ==
LOC: MW.ED 22:11
DX: L03.317 Cellulitis of buttock (principal); M54.40 Lumbago with sciatica, unspecified side; Z91.048 Other nonmedicinal substance allergy status; Z88.7 Allergy status to serum and vaccine
CPT/HCPCS: 96372; 99283; A9270; J1885; J2360

== ENCOUNTER 2023-06-15 03:13 | Emergency (ER) | payer SELFPAY ==
[2023-06-15] MEDS: Ibuprofen 600 MG Tab PO ONE (03:35)
== END 2023-06-15 03:46 | disposition home or self-care (01) ==
LOC: MW.ED 03:13
DX: J40 Bronchitis, not specified as acute or chronic (principal); Z91.018 Allergy to other foods; Z88.7 Allergy status to serum and vaccine; Z75.8 Other problems related to medical facilities and other health care
CPT/HCPCS: 71045; 93005; 99285; A9270

== ENCOUNTER 2023-06-20 18:16 | Emergency (ER) | payer SELFPAY ==
[2023-06-20] MEDS: Ibuprofen 600 MG Tab PO ONE (18:36)
== END 2023-06-20 19:34 | disposition home or self-care (01) ==
LOC: MW.ED 18:16
DX: J40 Bronchitis, not specified as acute or chronic (principal); F41.9 Anxiety disorder, unspecified; Z91.018 Allergy to other foods; Z88.7 Allergy status to serum and vaccine; Z88.8 Allergy status to other drugs, medicaments and biological substances; Z79.899 Other long term (current) drug therapy; Z75.8 Other problems related to medical facilities and other health care
CPT/HCPCS: 71045; 99285; A9270; 99283

== ENCOUNTER 2023-07-11 23:36 | Emergency (ER) | payer SELFPAY ==
[2023-07-11 23:49] LABS: BASOPHILS ABSOLUTE AUTO 0.03 K/uL (0.00-0.20); BASOPHILS PERCENT AUTO 0.4 % (0.0-1.0); EOSINOPHILS ABSOLUTE AUTO 0.14 K/uL (0.00-0.45); EOSINOPHILS PERCENT AUTO 1.9 % (0.0-6.0); HEMATOCRIT 46.6 % (42.0-52.0); HEMOGLOBIN 16.1 g/dL (14.0-18.0); IMMATURE GRAN ABSOLUTE AUTO 0.06 K/uL (0.00-0.05); IMMATURE GRAN PERCENT AUTO 0.8 % (0.0-0.4); LYMPHOCYTES ABSOLUTE AUTO 1.78 K/uL (1.00-4.80); LYMPHOCYTES PERCENT AUTO 24.3 % (24.0-44.0); MEAN CORPUSCULAR HEMOGLOBIN 30.7 pg (28.0-32.0); MEAN CORPUSCULAR HGB CONC 34.5 g/dL (32.0-36.0); MEAN CORPUSCULAR VOLUME 88.8 fL (83.0-99.0); MEAN PLATELET VOLUME 11.1 fL (9.4-12.4); MONOCYTES ABSOLUTE AUTO 0.37 K/uL (0.00-0.80); NEUTROPHILS ABSOLUTE AUTO 4.96 K/uL (1.80-7.70); NEUTROPHILS PERCENT AUTO 67.6 % (41.0-71.0); PLATELET COUNT,PLT 168 K/uL (150-400); RED BLOOD CELL COUNT 5.25 M/uL (4.52-5.90); WHITE BLOOD CELL COUNT,WBC 7.34 K/uL (3.9-11.3)
[2023-07-12] MEDS: Sodium Chloride 0.9% 10 ML Syringe FLUSH PRN (00:02)
[2023-07-12] MEDS: Sodium Chloride 0.9% 2.5 ML Syringe FLUSH PRN (00:02)
[2023-07-12 00:27] LABS: A/G RATIO 1.2 (0.9-1.6); ALANINE AMINOTRANSFERASE,ALT 70 IU/L (14-63); ALBUMIN 3.6 g/dL (3.4-5.0); ALKALINE PHOSPHATASE 94 U/L (46-116); ASPARTATE AMNIOTRANSFERASE,AST 22 IU/L (15-37); BILIRUBIN TOTAL 0.3 mg/dL (0.2-1.0); BLOOD UREA NITROGEN,BUN 15 mg/dL (7.0-18.0); CALCIUM 8.5 mg/dL (8.5-10.1); CARBON DIOXIDE,CO2 26.7 mmol/L (21.0-32.0); CHLORIDE,CL 106 mmol/L (98-107); ESTIMATED GFR 109 mL/min (>60); GLUCOSE RANDOM 147 mg/dL (74-106); LIPASE 44 U/L (16-77); POTASSIUM,K 3.9 mmol/L (3.5-5.1); PROTEIN TOTAL,TP 6.6 g/dL (6.4-8.2); SODIUM,NA 142 mmol/L (136-148)
== END 2023-07-12 00:46 | disposition home or self-care (01) ==
LOC: MW.ED 23:36
DX: K92.0 Hematemesis (principal); K29.70 Gastritis, unspecified, without bleeding; Z75.8 Other problems related to medical facilities and other health care; Z88.7 Allergy status to serum and vaccine; Z91.018 Allergy to other foods; Z79.899 Other long term (current) drug therapy
CPT/HCPCS: 36415; 80053; 83690; 85025; 99285; J3490

== ENCOUNTER 2023-07-14 17:41 | Emergency (ER) | payer MEDICAID | END 2023-07-14 19:14 | disposition home or self-care (01) | LOC: MW.ED 17:41 | DX: R07.9 Chest pain, unspecified (principal); E66.9 Obesity, unspecified; Z68.34 Body mass index [BMI] 34.0-34.9, adult; Z88.7 Allergy status to serum and vaccine; Z91.018 Allergy to other foods; Z75.8 Other problems related to medical facilities and other health care | CPT/HCPCS: 71045; 71045-26; 93005; 93010; 99282; 99285 ==

== ENCOUNTER 2023-07-17 21:30 | Inpatient (IN) | payer MEDICAID ==
[2023-07-17 22:06] LABS: BASOPHILS ABSOLUTE AUTO 0.04 K/uL (0.00-0.20); BASOPHILS PERCENT AUTO 0.4 % (0.0-1.0); EOSINOPHILS ABSOLUTE AUTO 0.11 K/uL (0.00-0.45); EOSINOPHILS PERCENT AUTO 1.2 % (0.0-6.0); HEMATOCRIT 51.6 % (42.0-52.0); HEMOGLOBIN 17.7 g/dL (14.0-18.0); IMMATURE GRAN ABSOLUTE AUTO 0.05 K/uL (0.00-0.05); IMMATURE GRAN PERCENT AUTO 0.6 % (0.0-0.4); LYMPHOCYTES ABSOLUTE AUTO 1.82 K/uL (1.00-4.80); LYMPHOCYTES PERCENT AUTO 20.4 % (24.0-44.0); MEAN CORPUSCULAR HEMOGLOBIN 30.3 pg (28.0-32.0); MEAN CORPUSCULAR HGB CONC 34.3 g/dL (32.0-36.0); MEAN CORPUSCULAR VOLUME 88.2 fL (83.0-99.0); MEAN PLATELET VOLUME 11.3 fL (9.4-12.4); MONOCYTES ABSOLUTE AUTO 0.52 K/uL (0.00-0.80); MONOCYTES PERCENT AUTO 5.8 % (0.0-8.0); NEUTROPHILS ABSOLUTE AUTO 6.37 K/uL (1.80-7.70); NEUTROPHILS PERCENT AUTO 71.6 % (41.0-71.0); PLATELET COUNT,PLT 182 K/uL (150-400); RED BLOOD CELL COUNT 5.85 M/uL (4.52-5.90); WHITE BLOOD CELL COUNT,WBC 8.91 K/uL (3.9-11.3)
[2023-07-17 22:19] LABS: PTT,PARTIAL THROMBOPLSTIN TIME 29.7 SEC (23.9-30.7)
[2023-07-17 22:30] LABS: A/G RATIO 1.3 (0.9-1.6); ALBUMIN 4.3 g/dL (3.4-5.0); BILIRUBIN TOTAL 0.4 mg/dL (0.2-1.0); CALCIUM 9.2 mg/dL (8.5-10.1); CARBON DIOXIDE,CO2 25.7 mmol/L (21.0-32.0); CREATININE 1.2 mg/dL (0.8-1.3); EST CRCL DRUG DOSING (CG) 115.41 mL/min; POTASSIUM,K 3.9 mmol/L (3.5-5.1); PROTEIN TOTAL,TP 7.7 g/dL (6.4-8.2)
[2023-07-17] MEDS ORDERED: Tenecteplase 50 MG Kit IVPUSH ONE (23:09)
[2023-07-17] MEDS: Iopamidol 755 MG/ML 500 ML Multipack Bottle IVPUSH ONE (23:13)
[2023-07-17] MEDS: Aspirin 81 MG Tab.Chew PO ONE (23:51)
[2023-07-18] MEDS: Tenecteplase 50 MG Kit IVPUSH ONE (00:07)
[2023-07-18] MEDS ORDERED: Acetaminophen 325 MG Tab PO PRN (02:38)
[2023-07-18] MEDS: Gadobenate Dimeglumine 529 MG/ML 20 ML SDV IVPUSH STA (07:35)
[2023-07-18 10:05] LABS: BASOPHILS ABSOLUTE AUTO 0.04 K/uL (0.00-0.20); BASOPHILS PERCENT AUTO 0.6 % (0.0-1.0); EOSINOPHILS ABSOLUTE AUTO 0.18 K/uL (0.00-0.45); EOSINOPHILS PERCENT AUTO 2.5 % (0.0-6.0); HEMATOCRIT 48.6 % (42.0-52.0); HEMOGLOBIN 16.6 g/dL (14.0-18.0); IMMATURE GRAN ABSOLUTE AUTO 0.04 K/uL (0.00-0.05); IMMATURE GRAN PERCENT AUTO 0.6 % (0.0-0.4); LYMPHOCYTES ABSOLUTE AUTO 1.54 K/uL (1.00-4.80); LYMPHOCYTES PERCENT AUTO 21.7 % (24.0-44.0); MEAN CORPUSCULAR HEMOGLOBIN 30.1 pg (28.0-32.0); MEAN CORPUSCULAR HGB CONC 34.2 g/dL (32.0-36.0); MEAN CORPUSCULAR VOLUME 88.2 fL (83.0-99.0); MONOCYTES ABSOLUTE AUTO 0.55 K/uL (0.00-0.80); MONOCYTES PERCENT AUTO 7.7 % (0.0-8.0); NEUTROPHILS ABSOLUTE AUTO 4.75 K/uL (1.80-7.70); NEUTROPHILS PERCENT AUTO 66.9 % (41.0-71.0); PLATELET COUNT,PLT 187 K/uL (150-400); RED BLOOD CELL COUNT 5.51 M/uL (4.52-5.90)
[2023-07-18 10:42] LABS: CALCIUM 9.3 mg/dL (8.5-10.1); CARBON DIOXIDE,CO2 28.2 mmol/L (21.0-32.0); CREATININE 1.2 mg/dL (0.8-1.3); EST CRCL DRUG DOSING (CG) 115.41 mL/min; POTASSIUM,K 4.1 mmol/L (3.5-5.1)
== END 2023-07-18 12:20 | disposition home or self-care (01) | DRG 948 ==
LOC: MW.ED 21:30 → MW.MS 23:48
PROVIDERS: ADMIT Internal Medicine; ATTEND Internal Medicine
DX: R53.1 Weakness (principal); R07.9 Chest pain, unspecified; R29.712 NIHSS score 12; F41.9 Anxiety disorder, unspecified; F32.A Depression, unspecified; F43.10 Post-traumatic stress disorder, unspecified; J45.909 Unspecified asthma, uncomplicated; F20.9 Schizophrenia, unspecified; F17.210 Nicotine dependence, cigarettes, uncomplicated; R29.810 Facial weakness; E66.9 Obesity, unspecified; Z68.30 Body mass index [BMI] 30.0-30.9, adult; Z90.89 Acquired absence of other organs; Z79.899 Other long term (current) drug therapy; Z88.7 Allergy status to serum and vaccine; Z88.8 Allergy status to other drugs, medicaments and biological substances; Z91.018 Allergy to other foods
CPT/HCPCS: 36415; 70450; 70450-26; 70496; 70496-26; 70498; 70498-26; 70553; 70553-26; 71046; 71046-26; 80048; 80053; 82947; 83690; 84484; 85025; 85610; 85730; 93005; 93010; 99223; 99285; A9270-GY; A9577; Q9967

== ENCOUNTER 2023-08-06 21:53 | Emergency (ER) | payer SELFPAY | END 2023-08-06 22:29 | disposition home or self-care (01) | LOC: MW.ED 21:53 | DX: S09.92XA Unspecified injury of nose, initial encounter (principal); F17.210 Nicotine dependence, cigarettes, uncomplicated; E66.9 Obesity, unspecified; Z68.37 Body mass index [BMI] 37.0-37.9, adult; Z88.7 Allergy status to serum and vaccine; Z75.8 Other problems related to medical facilities and other health care; Y04.8XXA Assault by other bodily force, initial encounter | CPT/HCPCS: 99283 ==

== ENCOUNTER 2023-08-18 02:23 | Emergency (ER) | payer OTHER, MEDICAID ==
[2023-08-18] MEDS: Acetaminophen 500 MG Tab PO ONE (02:56)
[2023-08-18] MEDS: Ibuprofen 600 MG Tab PO ONE (02:56)
== END 2023-08-18 04:15 | disposition home or self-care (01) ==
LOC: MW.ED 02:23
DX: S13.4XXA Sprain of ligaments of cervical spine, initial encounter (principal); S20.213A Contusion of bilateral front wall of thorax, initial encounter; E66.9 Obesity, unspecified; Z75.8 Other problems related to medical facilities and other health care; Z91.018 Allergy to other foods; Z88.7 Allergy status to serum and vaccine; V47.5XXA Car driver injured in collision with fixed or stationary object in traffic accident, initial encounter; Y92.410 Unspecified street and highway as the place of occurrence of the external cause
CPT/HCPCS: 70450; 71046; 72125; 99284; A9270; 99283

== ENCOUNTER 2023-09-15 23:16 | Emergency (ER) | payer MEDICAID ==
[2023-09-15 23:48] LABS: BASOPHILS ABSOLUTE AUTO 0.04 K/uL (0.00-0.20); BASOPHILS PERCENT AUTO 0.4 % (0.0-1.0); EOSINOPHILS ABSOLUTE AUTO 0.11 K/uL (0.00-0.45); HEMATOCRIT 46.3 % (42.0-52.0); HEMOGLOBIN 15.5 g/dL (14.0-18.0); IMMATURE GRAN ABSOLUTE AUTO 0.04 K/uL (0.00-0.05); IMMATURE GRAN PERCENT AUTO 0.4 % (0.0-0.4); LYMPHOCYTES ABSOLUTE AUTO 1.38 K/uL (1.00-4.80); LYMPHOCYTES PERCENT AUTO 12.9 % (24.0-44.0); MEAN CORPUSCULAR HEMOGLOBIN 30.2 pg (28.0-32.0); MEAN CORPUSCULAR HGB CONC 33.5 g/dL (32.0-36.0); MEAN CORPUSCULAR VOLUME 90.1 fL (83.0-99.0); MEAN PLATELET VOLUME 10.9 fL (9.4-12.4); MONOCYTES ABSOLUTE AUTO 0.59 K/uL (0.00-0.80); MONOCYTES PERCENT AUTO 5.5 % (0.0-8.0); NEUTROPHILS ABSOLUTE AUTO 8.56 K/uL (1.80-7.70); NEUTROPHILS PERCENT AUTO 79.8 % (41.0-71.0); PLATELET COUNT,PLT 164 K/uL (150-400); RED BLOOD CELL COUNT 5.14 M/uL (4.52-5.90); WHITE BLOOD CELL COUNT,WBC 10.72 K/uL (3.9-11.3)
[2023-09-16] MEDS: Famotidine 20 MG Tab PO ONE (00:04)
[2023-09-16] MEDS: Acetaminophen 500 MG Tab PO STA (00:04)
[2023-09-16 00:08] LABS: A/G RATIO 1.6 (0.9-1.6); BILIRUBIN TOTAL 0.7 mg/dL (0.2-1.0); CALCIUM 9.3 mg/dL (8.5-10.1); CARBON DIOXIDE,CO2 25.7 mmol/L (21.0-32.0); CREATININE 1.1 mg/dL (0.8-1.3); EST CRCL DRUG DOSING (CG) 122.47 mL/min; POTASSIUM,K 3.5 mmol/L (3.5-5.1); PROTEIN TOTAL,TP 6.5 g/dL (6.4-8.2)
[2023-09-16] MEDS: Famotidine 40 MG/5 ML Bottle PO STA (00:16)
== END 2023-09-16 00:40 | disposition home or self-care (01) ==
LOC: MW.ED 23:16
DX: R10.9 Unspecified abdominal pain (principal); K21.9 Gastro-esophageal reflux disease without esophagitis; E66.9 Obesity, unspecified; Z79.899 Other long term (current) drug therapy; Z88.7 Allergy status to serum and vaccine; Z91.018 Allergy to other foods; Z75.8 Other problems related to medical facilities and other health care; Z68.30 Body mass index [BMI] 30.0-30.9, adult
CPT/HCPCS: 36415; 80053; 83690; 85025; 99284; A9270

== ENCOUNTER 2023-10-11 14:44 | Emergency (ER) | payer MEDICAID ==
[2023-10-11] MEDS: EPINEPHrine 1 MG/1 ML Amp IM ONE (14:50)
[2023-10-11] MEDS ORDERED: Sodium Chloride 0.9% 2.5 ML Syringe FLUSH PRN (14:52)
[2023-10-11] MEDS ORDERED: Sodium Chloride 0.9% 10 ML Syringe FLUSH PRN (14:52)
[2023-10-11] MEDS: Sodium Chloride 0.9% 1,000 ML IV ONE (15:12)
[2023-10-11] MEDS: Cetirizine 10 MG Tab PO ONE (15:13)
[2023-10-11] MEDS: diphenhydrAMINE 50 MG/ML SDV IVPUSH ONE (15:18)
== END 2023-10-11 16:19 | disposition left against medical advice (07) ==
LOC: MW.ED 14:44
DX: T63.441A Toxic effect of venom of bees, accidental (unintentional), initial encounter (principal); Z75.8 Other problems related to medical facilities and other health care; Z88.7 Allergy status to serum and vaccine
CPT/HCPCS: 96361; 96372; 96374; 99282; A9270; J0171; J1100; J7030

== ENCOUNTER 2023-10-17 23:52 | Emergency (ER) | payer MEDICAID | END 2023-10-18 00:40 | disposition home or self-care (01) | LOC: MW.ED 23:52 | DX: J06.9 Acute upper respiratory infection, unspecified (principal); B96.89 Other specified bacterial agents as the cause of diseases classified elsewhere; J45.909 Unspecified asthma, uncomplicated; E66.9 Obesity, unspecified; Z68.37 Body mass index [BMI] 37.0-37.9, adult; Z88.7 Allergy status to serum and vaccine; Z91.018 Allergy to other foods | CPT/HCPCS: 99283 ==

== ENCOUNTER 2023-11-09 08:38 | Emergency (ER) | payer MEDICAID | END 2023-11-09 09:04 | disposition left against medical advice (07) | LOC: MW.ED 08:38 | DX: R07.9 Chest pain, unspecified (principal); E66.9 Obesity, unspecified; Z88.7 Allergy status to serum and vaccine; Z91.018 Allergy to other foods; Z75.8 Other problems related to medical facilities and other health care; Z68.37 Body mass index [BMI] 37.0-37.9, adult | CPT/HCPCS: 93005; 93010; 99284 ==

== ENCOUNTER 2024-03-29 23:38 | Emergency (ER) | payer MEDICAID | END 2024-03-29 23:53 | disposition left against medical advice (07) | LOC: MW.ED 23:38 | DX: Z53.21 Procedure and treatment not carried out due to patient leaving prior to being seen by health care provider (principal) ==

== ENCOUNTER 2024-04-15 01:24 | Emergency (ER) | payer MEDICAID | END 2024-04-15 03:48 | disposition home or self-care (01) | LOC: MW.ED 01:24 | DX: J06.9 Acute upper respiratory infection, unspecified (principal); B97.89 Other viral agents as the cause of diseases classified elsewhere; J45.909 Unspecified asthma, uncomplicated; E66.9 Obesity, unspecified; Z68.36 Body mass index [BMI] 36.0-36.9, adult; Z88.7 Allergy status to serum and vaccine; Z91.018 Allergy to other foods; Z79.899 Other long term (current) drug therapy | CPT/HCPCS: 87428-QW; 99285 ==

== ENCOUNTER 2024-08-21 00:50 | Emergency (ER) | payer MEDICAID | END 2024-08-21 05:48 | disposition home or self-care (01) | LOC: MW.ED 00:50 | DX: R10.9 Unspecified abdominal pain (principal); Z91.018 Allergy to other foods; Z88.7 Allergy status to serum and vaccine | CPT/HCPCS: 99283 ==

== ENCOUNTER 2024-09-04 23:58 | Emergency (ER) | payer MEDICAID ==
[2024-09-05 00:23] LABS: BASOPHILS ABSOLUTE AUTO 0.04 K/uL (0.00-0.20); BASOPHILS PERCENT AUTO 0.5 % (0.0-1.0); EOSINOPHILS ABSOLUTE AUTO 0.10 K/uL (0.00-0.45); EOSINOPHILS PERCENT AUTO 1.2 % (0.0-6.0); IMMATURE GRAN ABSOLUTE AUTO 0.03 K/uL (0.00-0.05); IMMATURE GRAN PERCENT AUTO 0.4 % (0.0-0.4); LYMPHOCYTES ABSOLUTE AUTO 1.29 K/uL (1.00-4.80); LYMPHOCYTES PERCENT AUTO 15.7 % (24.0-44.0); MEAN PLATELET VOLUME 11.3 fL (9.4-12.4); MONOCYTES ABSOLUTE AUTO 0.57 K/uL (0.00-0.80); MONOCYTES PERCENT AUTO 7.0 % (0.0-8.0); NEUTROPHILS ABSOLUTE AUTO 6.17 K/uL (1.80-7.70); NEUTROPHILS PERCENT AUTO 75.2 % (41.0-71.0); NRBC ABSOLUTE 0.00 K/uL (0.00-0.02); NRBC PERCENT 0.0 /100WBC (0.0-0.2); PLATELET COUNT,PLT 171 K/uL (150-400); RED BLOOD CELL COUNT 5.16 M/uL (4.52-5.90); WHITE BLOOD CELL COUNT,WBC 8.20 K/uL (3.9-11.3)
[2024-09-05 00:48] LABS: A/G RATIO 1.5 (0.9-1.6); ALANINE AMINOTRANSFERASE,ALT 71 IU/L (14-63); ASPARTATE AMNIOTRANSFERASE,AST 28 IU/L (15-37); BILIRUBIN TOTAL 0.7 mg/dL (0.2-1.0); BLOOD UREA NITROGEN,BUN 17 mg/dL (7.0-18.0); CARBON DIOXIDE,CO2 29.4 mmol/L (21.0-32.0); CHLORIDE,CL 103 mmol/L (98-107); CREATININE 1.0 mg/dL (0.8-1.3); EST CRCL DRUG DOSING (CG) 133.58 mL/min; ETHANOL BLOOD MEDICAL <3 mg/dL; GLUCOSE RANDOM 91 mg/dL (74-106); POTASSIUM,K 3.6 mmol/L (3.5-5.1); PROTEIN TOTAL,TP 6.9 g/dL (6.4-8.2); SODIUM,NA 140 mmol/L (136-148)
[2024-09-05 00:57] LABS: ESTIMATED GFR 108 mL/min (>60)
== END 2024-09-05 01:44 | disposition other institution (70) ==
LOC: MW.ED 23:58
DX: R45.851 Suicidal ideations (principal); E66.9 Obesity, unspecified; Z91.018 Allergy to other foods; Z88.7 Allergy status to serum and vaccine; Z68.35 Body mass index [BMI] 35.0-35.9, adult
CPT/HCPCS: 36415; 80053; 80143; 80179; 80307; 85025; 93005; 99285